=== PATIENT | female | born 1995 | race Two or more races ===

== ENCOUNTER 2019-09-17 06:35 | Inpatient (IN) | payer OTHER ==
[~2019-09-17] VITALS: Ht 165.1 cm; Wt 75.7 kg
[2019-09-17] MEDS ORDERED: PRENATAL + DHA1 EAC1 PO (08:32)
[2019-09-17] MEDS ORDERED: IRON325 MG PO (08:33)
== END 2019-09-19 17:21 | DRG 807 ==
LOC: LDR 06:35 → OB/GYN 06:35
PROVIDERS: ADMIT Specialist; ATTEND Specialist
PROC: 10E0XZZ Delivery of Products of Conception, External Approach (ICD-10-PCS; principal; 2019-09-17)
PROC: 0W8NXZZ Division of Female Perineum, External Approach (ICD-10-PCS; 2019-09-17)
PROC: 4A0HXFZ Measurement of Products of Conception, Cardiac Rhythm, External Approach (ICD-10-PCS; 2019-09-17)
DX: O80 Encounter for full-term uncomplicated delivery (principal); Z37.0 Single live birth; Z3A.41 41 weeks gestation of pregnancy